=== PATIENT | male | born 1950 | race African-American/Black ===

== ENCOUNTER 2018-04-06 05:56 | Emergency (ER) | payer OTHER ==
[~2018-04-06] VITALS: Ht 177.8 cm; Wt 75.0 kg
[2018-04-06] MEDS ORDERED: ONDANSETRON HCL 4MG/2ML INJ IV STA (06:23)
[2018-04-06] MEDS ORDERED: SODIUM CHLORIDE 0.9% 1,000 ML IV ONE ×2 (06:23→10:56)
[2018-04-06] MEDS ORDERED: MORPHINE SULFATE 4 MG/ML CPJ (NOT FOR IM USE) IV STA (06:23)
[2018-04-06 06:56] LABS: HEMATOCRIT. 49.8 % (42.0-52.0); HEMOGLOBIN. 16.3 g/dL (14.0-18.0); MEAN CORPUSCULAR HEMOGLOBIN 28.4 pg (28.0-32.0); MEAN CORPUSCULAR VOLUME 86.7 fL (80.0-94.0); MEAN PLATELET VOLUME 8.9 fl (7.4-10.4); PLATELET 209 x1000/uL (130-400); RED BLOOD CELL COUNT 5.75 mill/uL (4.7-6.1); RED CELL DISTRIBUTION WIDTH 13.8 % (11.6-14.6)
[2018-04-06 07:01] LABS: CHLORIDE 101 mEq/L (98-107)
[2018-04-06 07:03] LABS: INR 1.1; PROTHROMBIN TIME 10.7 sec (9.1-11.1)
[2018-04-06] MEDS ORDERED: METRONIDAZOLE 500 MG PREMIX 100 ML IV ONE (08:45)
[2018-04-06] MEDS ORDERED: LEVOFLOXACIN 750MG PREMIX 150 ML IV ONE (08:45)
[2018-04-06 08:53] LABS: CLARITY URINE CLEAR (CLEAR); COLOR URINE YELLOW (YELLOW); KETONES URINE NEGATIVE (NEGATIVE); LEUKOCYTE ESTERASE URINE NEGATIVE (NEGATIVE); NITRITE URINE NEGATIVE (NEGATIVE); OCCULT BLOOD URINE 1+ (NEGATIVE); PROTEIN URINE NEGATIVE (NEGATIVE); SPECIFIC GRAVITY URINE 1.012 (1.005-1.030); UROBILINOGEN URINE 0.2 E.U./dL (0.2-1.0)
[2018-04-06] MEDS ORDERED: IOHEXOL-300 100 ML BOTTLE ONE (09:20)
[2018-04-06] MEDS ORDERED: MORPHINE SULFATE 4 MG/ML CPJ (NOT FOR IM USE) IV NR (10:55)
[2018-04-06] MEDS ORDERED: ONDANSETRON HCL 4MG/2ML INJ IV NR (10:55)
[2018-04-06 10:57] LABS: PLATELET ESTIMATE NORMAL
[2018-04-06] MEDS ORDERED: ACETAMINOPHEN 500MG TABLET PO NR (11:00)
[2018-04-06 15:15] VITALS: BP 136/93
== END 2018-04-06 15:28 | disposition short-term general hospital (02) ==
LOC: ER 05:56
DX: K57.32 Diverticulitis of large intestine without perforation or abscess without bleeding (principal)
CPT/HCPCS: 36415; 74177; 80053; 81003; 83690; 85025; 85610; 96365; 96366; 96368; 96375; 96376; 99285; J1956; J2270; J2405; J3490; J7030; Q9967